=== PATIENT | male | born 1985 | race Two or more races ===

== ENCOUNTER 2025-06-18 10:57 | Emergency (ER) | payer BC, SELFPAY ==
[2025-06-18 11:10] VITALS: BP 145/92; PULSE 82; RESP 18; TEMP 36.8; O2SAT 98
--- NOTE | 2025-06-18 11:19 | XR_ITS ---
Examination: Ultrasound soft tissue extremity right calf TECHNIQUE: Grayscale sonographic images soft tissue right calf Date and time: June 18, 2025 1112 hours INDICATIONS: Injury to the calf one hour ago, patient heard a pop in the calf followed by pain FINDINGS: 5.8 x 0.7 x 5.6 cm fluid collection tubular in the medial right calf consistent with hematoma IMPRESSION: Right calf hematoma Recommend ELECTIVE MRI right lower leg follow-up to exclude rupture of the plantaris tendon
--- NOTE | 2025-06-18 11:52 | EDNOTE_ITS ---
<Statement entered by Dasha Lujan MD - 06/18/25 15:08> As co-signing physician, I was present and available for consult prn. I concur with the plan and care as documented by the midlevel provider. Lower Extremity Injury RME/HPI General Chief Complaint: Extremity Injury, Lower Stated Complaint: Right calf pain, pt. thinks it's torn Time Seen by Provider: 06/18/25 11:20 Source: patient Arrival date/time: 06/18/25 10:57 39-year-old male with no known medical history presents to the emergency room with a chief complaint of right calf pain and swelling after putting a lot of pressure on it while trying to lift a car 1 hour ago. Mode of arrival: ambulatory Limitations: no limitations Related Data Previous Rx's ?Medication ?Instructions ?Recorded ibuprofen 800 mg tablet 800 mg PO Q8H #30 tabs 06/18 Allergies Allergy/AdvReac Type Severity Reaction Status Date / Time No Known Allergies Allergy Verified 06/18/25 11:02 Review of Systems Review of Systems Systems Reviewed: All systems reviewed, normal except as documented Constitutional Constitutional: Reports system reviewed and no additional complaints, except as documented, Denies fatigue, Denies fever(s), Denies headache(s) and Denies weakness Eyes Eyes: Reports system reviewed and no additional complaints, except as documented, Denies blurry vision and Denies change in vision ENT Ears, Nose, Mouth, and Throat: Reports system reviewed and no additional complaints, except as documented, Denies otalgia, Denies headache(s), Denies nasal congestion, Denies throat swelling and Denies vertigo Cardiovascular Cardiovascular: Reports system reviewed and no additional complaints, except as documented, Denies chest pain, Denies dyspnea and Denies dyspnea on exertion Respiratory Respiratory: Reports system reviewed and no additional complaints, except as documented, Denies chest congestion, Denies cough, Denies dyspnea, Denies dyspnea on exertion and Denies wheezing Gastrointestinal Gastrointestinal: Reports system reviewed and no additional complaints, except as documented, Denies abdominal pain, Denies cramping, Denies nausea and Denies vomiting Genitourinary Genitourinary: Reports system reviewed and no additional complaints, except as documented, Denies dysuria and Denies hematuria Musculoskeletal Musculoskeletal: Reports system reviewed and no additional complaints, except as documented, Denies back pain, Reports joint swelling and Reports muscle weakness Integumentary/Breasts Skin/Breast: Reports system reviewed and no additional complaints, except as documented and Denies wounds Neurologic Neurologic: Reports system reviewed and no additional complaints, except as documented, Denies confusion, Denies headache(s), Denies lack of coordination, Denies vertigo and Denies weakness Psychiatric Psychiatric: Reports system reviewed and no additional complaints, except as documented, Denies anxiety, Denies confusion, Denies depression, Denies paranoia, Denies suicidal ideation and Denies tactile hallucinations Endocrine Endocrine: Reports system reviewed and no additional complaints, except as documented and Denies fatigue Hematologic/Lymphatic Hematologic/Lymphatic: Reports system reviewed and no additional complaints, except as documented and Denies lymphadenopathy Allergic/Immunologic Allergic/Immunologic: Reports system reviewed and no additional complaints, except as documented, Denies throat swelling, Denies urticaria and Denies wheezing Past Medical History Past Medical History CARDIAC: Negative Congestive Heart Failure RESPIRATORY: Negative Chronic Obstructive Pulmonary Disease (COPD) GENITOURINARY: Negative Renal Disease ENDOCRINE: Negative Diabetes Mellitus Type 1 or Diabetes Mellitus Type 2 Social History SMOKING STATUS: Current every day smoker ED Exam General Limitations: Present no limitations General appearance: Present alert and in no apparent distress Head Head exam: Present atraumatic Eye Eye exam: Present normal appearance, PERRL and EOMI ENT ENT exam: Present normal exam, normal oropharynx and mucous membranes moist Neck Neck exam: Present normal inspection, full ROM and trachea midline Chest Chest inspection: Present normal inspection and symmetric chest wall rise Respiratory Respiratory exam: Present normal lung sounds bilaterally Cardiovascular Cardiovascular exam: Present regular rate, normal rhythm and normal heart sounds Abdominal Exam Abdominal exam: Present soft and normal bowel sounds Extremities Exam Extremities exam: Present normal inspection and full ROM Expanded Lower Extremity Exam Hip/Pelvis exam: Present normal inspection Upper leg exam: Present normal inspection Knee exam: Present normal inspection Lower leg exam: Present tenderness, swelling, Homans' sign and Achilles tendon intact; Absent full ROM or erythema Neurovascular/Tendon exam: Present significant pain with passive ROM of distal joint Gait: observed and limited by pain and unable to bear weight Back Exam Back exam: Present normal inspection and full ROM Neurological Exam Neurological exam: Present alert, oriented X3 and CN II-XII intact Psychiatric Psychiatric exam: Present normal affect and normal mood Skin Skin exam: Present warm, dry, intact and normal color Course Quality Measures none Orders Category Date Time Status Crutches .NOW Care 06/18/25 13:40 Active Splint / Immobilizer STAT Care 06/18/25 13:40 Active US extremity nonvascular LMTD Stat Exams 06/18/25 11:19 Completed Ketorolac Inj [Toradol Inj] Med 06/18/25 13:41 Discontinued 30 mg IM X1 ONE Vital Signs Vital signs: Vital Signs Temperature 98.3 F 06/18/25 11:10 Pulse Rate 82 06/18/25 11:10 Respiratory Rate 18 06/18/25 11:10 Blood Pressure 145/92 H 06/18/25 11:10 Pulse Oximetry (%) 98 06/18/25 11:10 Oxygen Delivery Method Room Air 06/18/25 11:10 Extremity Injury, Lower MDM Narrative MDM Narrative:: 39-year-old male with no known medical history presents to the emergency room with a chief complaint of right calf pain and swelling after putting a lot of pressure on it while trying to lift a car 1 hour ago. Patient is hemodynamically stable and in no apparent distress Physical examination shows tenderness and pain to the patient's right calf. The patient has very limited range of motion and has difficulty ambulating. Patient states he cannot bear any weight. This injury occurred while the patient was putting a lot of pressure while trying to lift a car. A ultrasound of the lower extremity was completed and shows right calf hematoma. Our radiologist recommends an MRI outpatient to exclude the rupture of the plantaris tendon Patient was educated to follow-up with his primary care provider for an MRI and return to the emergency room for any evidence of worsening signs or symptoms Patient data External records reviewed:: [facility] previous records Clinical information provided by:: patient Social determinants that could affect healthcare access:: none Patient has the following chronic illnesses:: No chronic illness How is presenting disease/condition affected by chronic disease/condition?: no chronic disease Evaluation data The following diagnostics were reviewed and interpreted by me:: lab results and radiology exam(s) Lab and/or radiology exams considered but not ordered:: Labs and radiology exams considered and ordered Interpretation Summary: Ultrasound lower extremity-FINDINGS: 5.8 x 0.7 x 5.6 cm fluid collection tubular in the medial right calf consistent with hematoma IMPRESSION: Right calf hematoma Recommend ELECTIVE MRI right lower leg follow-up to exclude rupture of the plantaris tendon Medications / Prescriptions Medications or Prescriptions considered but not ordered:: Medication given Medication administrations:: Medication Administration History Discontinued Medications Ketorolac Tromethamine (Ketorolac Inj 60 Mg/2 Ml Vial) 30 mg IM X1 ONE Stop: 06/18/25 13:42 Medication given Consultations Consultation(s) initiated? (list below): No Diagnosis Extremity Injury, Lower Differential Diagnosis: ankle sprain and strain and other (Injury to the right plantaris muscle or tendon) Most likely diagnosis given after review of the tests above:: Injury to the right plantaris muscle or tendon Admission Indicated Admission indicated?: not indicated Admission Request Was there a request for admission?: No Disposition Plan Disposition Plan: Discharge Discharge Attestation Discharge Attestation: The patient and all family members were given an opportunity to ask questions and understood the discharge instructions. Discharge instructions specifically effects, indications for sooner follow up or return to the emergency department, and the expected course of current diagnosis. Patient condition: Stable Discharge Plan Plan Patient Disposition: HOME (Self Care) Discharge Disposition comment: Stable Prescriptions/Referrals Prescriptions/Med Rec: New ibuprofen 800 mg tablet 800 mg PO Q8H Qty: 30 0RF Referrals: No Primary/Family,Physician [Primary Care Provider] - In 1 week Problem List Clinical Impression: Injury of right plantaris muscle or tendon Patient/Caregiver Discharge Instructions Education Materials: ED DALLIN Wrap, ED Muscle Strain, Extremity Additional Instructions: Please follow-up with your primary care provider in the next 24 to 48 hours You have a buildup of fluid in your right calf. It is very possible that you have a rupture of your plantaris tendon. You will need to follow-up with your primary care provider for an MRI for further management Please keep your Dallin wrap in place and use crutches and avoid putting any weight on your foot For any evidence of worsening signs or symptoms return to the emergency room immediately Print Language: Barbadian Stand Alone Forms: Carol Award Info., Work/School Release, Patient Portal Info Letter PA/AMAN Supervising Physician SARAHI/AMAN Supervising Physician: Dr. Nielsen
[2025-06-18] MEDS: KETOROLAC INJ 60 MG/2 ML VIAL 30 MG IM (14:30)
== END 2025-06-18 14:55 | disposition home or self-care (01) ==
PROVIDERS: Emergency Provider Nurse Practitioner Family
DX: S80.11XA Contusion of right lower leg, initial encounter (principal); X50.0XXA Overexertion from strenuous movement or load, initial encounter
CPT/HCPCS: 76882; 96372; 99284; J1885

== ENCOUNTER → 2025-07-23 | Outpatient (CLI) | payer MEDICAID, SELFPAY ==
--- NOTE | 2025-07-23 09:30 | XR_ITS ---
Examination: MRI right lower extremity without contrast Date and time of exam: July 23, 2021, 1003 hours INDICATIONS: Patient felt a pop in the lower leg post injury 06/20/2025, swelling and pain in the leg post injury Technique: Multiple MRI axial and sagittal sections lumbar spine. Sagittal T2-weighted images, TR 3500, TE 118 T1 weighted transverse sections, TR 688 T8.5, T2-weighted sagittal sections T1 weighted sagittal sections TR 621, TE 30 T2 axial sections, TR 4, 190, TE 84. Findings: Findings consistent with plantaris tendon rupture, sagittal image 22, retracted tendon Hemorrhage is present between the soleus and medial head of the gastrocnemius Mild hemorrhage in the medial gastrocnemius No fracture Cortex of the tibia fibula intact IMPRESSION: Findings most consistent with plantaris tendon rupture Hemorrhage is present between the soleus and the medial head of the gastrocnemius Mild hemorrhage in the medial gastrocnemius
== END | disposition home or self-care (01) ==
PROVIDERS: PCP Registered Nurse; Referring Provider Registered Nurse; Visit Provider Registered Nurse
DX: S80.11XA Contusion of right lower leg, initial encounter (principal); X58.XXXA Exposure to other specified factors, initial encounter
CPT/HCPCS: 73718